=== PATIENT | male | born 1990 | race Caucasian/White ===

== ENCOUNTER 2016-06-08 11:11 | Emergency (ER) | payer SELFPAY ==
[~2016-06-08] VITALS: Ht 170.2 cm; Wt 100.0 kg
[~2016-06-08 11:11] MED LIST: IBUP800T23 PO; METH750T2 PO
[2016-06-08 11:13] VITALS: BP 149/98; PULSE 80; RESP 12; TEMP 98.7; O2SAT 97
--- NOTE | 2016-06-08 13:03 | PD ---
HPI Chief Complaint: Abdominal Pain Time Seen by Provider: 13:03 Travel History International Travel<30 days: No Contact w/Intl Traveler<30days: No Traveled to known affect area: No History of Present Illness HPI 25-year-old male presents to the emergency department for evaluation of epigastric abdominal pain for 2-3 days. Patient states that he has a "empty feeling" in his epigastric region intermittently for the past 2-3 days. States it is associated with some mild nausea. States that the pain is aggravated with eating and drinking alcohol. States that the pain was improved with taking Zantac. He states that he had subjective fever yesterday. States that he had a loose bowel movement this morning. Denies chills, vomiting, bloody stool, constipation, chest pain, shortness of breath, cough or cold symptoms. Denies any prior abdominal surgeries. Denies any recent travel or diet changes. Patient does admit to drinking alcohol about 4 beers daily. Smokes marijuana daily. No other complaints. PFSH Past Medical History Medical History: Denies Significant Hx Asthma: No Musculoskeletal: No Neurologic: No Influenza Vaccination: No Past Surgical History Other Surgery: Yes (ankle and jaw) Social History Alcohol Use: Yes (daily beer) Tobacco Use: No Substance Use: Yes (marijuana) Allergies-Medications (Allergen,Severity, Reaction): Coded Allergies: No Known Allergies (Verified , 06/08/16) Reported Meds & Prescriptions Reported Meds & Active Scripts Active No Active Prescriptions or Reported Medications Review of Systems Except as stated in HPI: all other systems reviewed are Neg Physical Exam Narrative GENERAL: Well-nourished and well-developed pleasant male patient in no acute distress who is nontoxic appearing. SKIN: Warm and dry. HEAD: Normocephalic and atraumatic. EYES: No injection, drainage, or hyphema noted. PERRLA. EOMI. ENT: No nasal drainage noted. Oropharynx is clear. NECK: Supple and the trachea is midline. CARDIOVASCULAR: Regular rate and rhythm. RESPIRATORY: Breath sounds are equal bilaterally with no accessory muscle use, wheezing, rhonchi, or crackles. GASTROINTESTINAL: Mild epigastric tenderness to palpation. Negative Anton sign. Negative McBurney's point. No rebound tenderness or guarding. Abdomen is soft and nondistended. MUSCULOSKELETAL: No obvious deformities, swelling, cyanosis, or ecchymosis is present throughout the upper and lower extremities. Patient has full range of motion without any signs of neurovascular compromise. NEUROLOGICAL: Awake, alert, and oriented. Normal speech and gait. Cranial nerves are grossly intact. Data Data Last Documented VS Vital Signs Date Time Temp Pulse Resp B/P Pulse Ox O2 Delivery O2 Flow Rate FiO2 06/08/16 11:13 98.7 80 12 149/98 97 Room Air Orders Complete Blood Count With Diff (06/08/16 13:01) Comprehensive Metabolic Panel (06/08/16 13:01) Lipase (06/08/16 13:01) Al-Mag Hy-Si 40-40-4 Mg/Ml Liq (Mag-Al P (06/08/16 13:15) Lidocaine 2% Viscous (Xylocaine 2% Visco (06/08/16 13:15) Ranitidine (Zantac) (06/08/16 13:15) Famotidine (Pepcid) (06/08/16 13:30) Labs Laboratory Tests Test 06/08/16 13:15 White Blood Count 7.8 TH/MM3 Red Blood Count 5.34 MIL/MM3 Hemoglobin 15.6 GM/DL Hematocrit 43.7 % Mean Corpuscular Volume 81.9 FL Mean Corpuscular Hemoglobin 29.2 PG Mean Corpuscular Hemoglobin 35.6 % Concent Red Cell Distribution Width 12.6 % Platelet Count 242 TH/MM3 Mean Platelet Volume 7.7 FL Neutrophils (%) (Auto) 52.9 % Lymphocytes (%) (Auto) 34.2 % Monocytes (%) (Auto) 10.6 % Eosinophils (%) (Auto) 1.8 % Basophils (%) (Auto) 0.5 % Neutrophils # (Auto) 4.1 TH/MM3 Lymphocytes # (Auto) 2.7 TH/MM3 Monocytes # (Auto) 0.8 TH/MM3 Eosinophils # (Auto) 0.1 TH/MM3 Basophils # (Auto) 0.0 TH/MM3 CBC Comment DIFF FINAL Differential Comment Sodium Level 137 MEQ/L Potassium Level 3.5 MEQ/L Chloride Level 104 MEQ/L Carbon Dioxide Level 29.0 MEQ/L Anion Gap 4 MEQ/L Blood Urea Nitrogen 8 MG/DL Creatinine 0.83 MG/DL Estimat Glomerular Filtration 112 ML/MIN Rate Random Glucose 88 MG/DL Calcium Level 9.2 MG/DL Total Bilirubin 0.4 MG/DL Aspartate Amino Transf 97 U/L (AST/SGOT) Alanine Aminotransferase 132 U/L (ALT/SGPT) Alkaline Phosphatase 105 U/L Total Protein 8.4 GM/DL Albumin 4.1 GM/DL Lipase 76 U/L [facility] Medical Decision Making Medical Screen Exam Complete: Yes Emergency Medical Condition: Yes Differential Diagnosis Gastritis versus gastroenteritis versus viral illness versus GERD versus PUD versus pancreatitis Narrative Course 25-year-old male presents to the emergency department for evaluation of epigastric abdominal pain for 2-3 days. Patient is afebrile, vital signs are stable. Patient has very mild epigastric tenderness to palpation on examination , abdominal examination is essentially benign. He appears very well overall. The patient is a daily alcohol drinker and is reporting that his symptoms were improved with Zantac and aggravated with alcohol. I believe that he has gastritis. CBC, CMP and lipase have been ordered and are pending. The patient is ordered a GI cocktail and Pepcid. He'll be reassessed after these medications. If a medical bed becomes available before his lab work results he' ll be moved to a medical bed for further evaluation and disposition. CBC is unremarkable. AST and ALT are slightly elevated, likely secondary to alcohol use. Otherwise CMP is unremarkable. Lipase is normal. Patient has remained stable and without complaint while here in the emergency department. He'll be discharged with a prescription for Zantac. Advised to decrease his alcohol intake. Advised follow-up with his PCP. Patient verbalizes understanding and agreement with treatment plan. I discussed the case with my attending physician Dr. Sousa who is aware of the patients history, physical examination findings, and treatment plan. Diagnosis Primary Impression: Gastritis Qualified Code: K29.20 - Acute alcoholic gastritis without hemorrhage Referrals: Primary Care Physician Patient Instructions: Gastritis (ED), General Instructions Additional Instructions: Take medication as prescribed. Follow-up with your Primary Care Physician. Return to the ED for any acute worsening of symptoms. Med/Other Pt SpecificInfo: Prescription(s) given Scripts No Active Prescriptions or Reported Meds Disposition: 01 DISCHARGE HOME Condition: Stable Karley Torres Jun 08, 2016 13:03
[2016-06-08] MEDS ORDERED: ALUMINUM/MAGNESIUM/SIMETH 30 ML CUP PO ONE (13:15)
[2016-06-08] MEDS ORDERED: LIDOCAINE VISCOUS 2% SOLN 15 ML UDC PO ONE (13:15)
[2016-06-08] MEDS ORDERED: RANITIDINE HCL 150 MG TAB PO ONE (13:15)
[2016-06-08 13:28] LABS: AUTOMATED NEUTROPHIL # 4.1 TH/MM3 (1.8-7.7); BASOPHIL % 0.5 % (0.0-2.0); EOSINOPHIL # 0.1 TH/MM3 (0-0.4); EOSINOPHIL % 1.8 % (0.0-4.0); HEMATOCRIT 43.7 % (39.0-51.0); HEMO FLAGS DIFF FINAL; LYMPH % 34.2 % (9.0-44.0); LYMPHOCYTE # 2.7 TH/MM3 (1.0-4.8); MEAN CELL VOLUME 81.9 FL (80.0-100.0); MEAN CORPUSCULAR HEMOGLOBIN 29.2 PG (27.0-34.0); MEAN CORPUSCULAR HGB CONC 35.6 % (32.0-36.0); MONO % 10.6 % (0.0-8.0); NEUT % 52.9 % (16.0-70.0); PLATELET COUNT 242 TH/MM3 (150-450); RED BLOOD COUNT 5.34 MIL/MM3 (4.50-5.90); RED CELL DISTRIBUTION WIDTH 12.6 % (11.6-17.2); WHITE BLOOD COUNT 7.8 TH/MM3 (4.0-11.0)
[2016-06-08] MEDS ORDERED: FAMOTIDINE 20 MG TAB PO ONE (13:30)
[2016-06-08 13:49] LABS: ALT (GPT) 132 U/L (12-78); ANION GAP 4 MEQ/L (5-15); AST (GOT) 97 U/L (15-37); BLOOD UREA NITROGEN 8 MG/DL (7-18); CHLORIDE 104 MEQ/L (98-107); GLOMERULAR FILTRATION RATE 112 ML/MIN (>89); POTASSIUM 3.5 MEQ/L (3.5-5.1); SODIUM (NA) 137 MEQ/L (136-145)
[2016-06-08 13:51] LABS: ALKALINE PHOSPHATASE 105 U/L (45-117); TOTAL BILIRUBIN ADULT 0.4 MG/DL (0.2-1.0)
[2016-06-08] MEDS ORDERED: RANI150T PO (14:01)
== END 2016-06-08 14:20 | disposition home or self-care (01) ==
LOC: NETRI 11:11
DX: K29.70 Gastritis, unspecified, without bleeding (principal); F12.90 Cannabis use, unspecified, uncomplicated
CPT/HCPCS: 80053; 83690; 85025; 99284

== ENCOUNTER 2017-11-10 12:20 | Emergency (ER) | payer OTHER ==
[~2017-11-10 12:20] MED LIST changes: -IBUP800T23 PO; -METH750T2 PO; +RANI150T PO
[2017-11-10 12:50] VITALS: BP 154/98; PULSE 60; RESP 17; TEMP 98.3; O2SAT 100
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
[2017-11-10] MEDS ORDERED: IOHEXOL 350 MG/ML 10 ML VIAL (for RAD DIAG) IVCONTRAST ONE (14:09)
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
[2017-11-10] MEDS ORDERED: AUGM875T3 PO (16:28)
[2017-11-10] MEDS ORDERED: AMOXICILLIN/CLAVULANATE K 875 MG TAB PO ONE (16:30)
== END 2017-11-10 16:43 | disposition home or self-care (01) ==
LOC: NEPD 12:20
DX: S02.32XA Fracture of orbital floor, left side, initial encounter for closed fracture (principal); S02.82XA Fracture of other specified skull and facial bones, left side, initial encounter for closed fracture; H40.052 Ocular hypertension, left eye; H11.32 Conjunctival hemorrhage, left eye; H53.9 Unspecified visual disturbance; Y04.2XXA Assault by strike against or bumped into by another person, initial encounter
CPT/HCPCS: 70487; 99284; Q9967